=== PATIENT | female | born 1965 | race African-American/Black ===

== ENCOUNTER 2018-02-10 05:39 | Emergency (ER) | payer SELFPAY ==
[~2018-02-10] VITALS: Ht 167.6 cm; Wt 69.0 kg
[2018-02-10 05:44] VITALS: BP 123/81
== END 2018-02-10 09:37 | disposition left against medical advice (07) ==
LOC: ER 09:22
DX: Z53.21 Procedure and treatment not carried out due to patient leaving prior to being seen by health care provider (principal)